=== PATIENT | male | born 1940 | race Caucasian/White ===

== ENCOUNTER 2017-05-25 18:04 | Inpatient (IN) | payer MEDICARE ==
--- NOTE | 2017-05-25 19:20 | EDM.PDOC ---
[id number] Complaint: VOMITING Time Seen by Provider: 05/25/17 19:05 Source of Information: Reports: Provider History Limitations: Reports: Other (Patient is noncommunicative, lives in assisted living) - History of Present Illness INITIAL COMMENTS - FREE TEXT/NARRATIVE: 77-year-old male has had vomiting for the past 2 days. No bowel movement for the past 2 days. He typically has a bowel movement every day. He is not complaining of pain, but tends not to complain when there are issues. No fevers or chills. No shortness of breath or cough. Onset: Gradual (Over the past 2 days) Severity: Moderate Associated Symptoms: Reports: Nausea/Vomiting, Other (This afternoon after vomiting his blood pressure did drop, it has normalized). Denies: Fever/Chills , Shortness of Breath - Related Data Allergies Allergy/AdvReac Type Severity Reaction Status Date / Time No Known Allergies Allergy Verified 05/25/17 19:36 Home Meds: Home Meds Calcium Carbonate/Vitamin D3 [Calcium 500 mg Chewable Tablet] 1 each PO BID 07/07 [History] Cetirizine [ZyrTEC] 10 mg PO DAILY 05/30/15 [History] Cholecalciferol (Vitamin D3) [Vitamin D] 1,000 unit PO DAILY 05/30/15 [History] Escitalopram [Lexapro] 20 mg PO DAILY 05/30/15 [History] LORazepam [Ativan] 1 mg PO BID 05/30/15 [History] busPIRone [Buspar] 5 mg PO BID 05/30/15 [History] Past Medical History Other Neuro History: Mental redardation - Past Surgical History Other Musculoskeletal Surgeries/Procedures:: hip repair Social & Family History - Tobacco Use Smoking Status *Q: Never Smoker - Recreational Drug Use Recreational Drug Use: No ED ROS GENERAL - Review of Systems Review Of Systems: Unable To Obtain (Brief review of systems is in history of present illness obtained from provider, unable to obtain from patient) ED EXAM, GI/ABD - Physical Exam Exam: See Below Exam Limited By: Language Barrier General Appearance: Alert, No Apparent Distress Eyes: Bilateral: EOMI (No jaundice) Respiratory/Chest: No Respiratory Distress, Lungs Clear Cardiovascular: Regular Rate, Rhythm GI/Abdominal: Normal Bowel Sounds, Soft, Other (Abdomen seems somewhat distended and he does react with tenderness to palpation but does not guard) Neurological: Alert Psychiatric: Flat Affect Skin Exam: Warm, Dry Course - Vital Signs Last Recorded V/S: Last Vital Signs Temp 99.0 F 05/25/17 23:36 Pulse 87 05/25/17 23:36 Resp 20 05/25/17 23:36 BP 120/65 05/25/17 23:36 Pulse Ox 94 L 05/25/17 23:36 - Orders/Labs/Meds Orders: Active Orders 24 hr Category Date Time Status Abdomen Pelvis wo Cont [CT] Stat Exams 05/25/17 20:11 Taken NG Tube Placement [CR] Stat Exams 05/25/17 21:06 Taken Dextrose 5%-Lactated Ringers 1,000 ml Med 05/25/17 21:15 Active IV ASDIRECTED Medication Orders Hydromorphone HCl (Dilaudid) 0.25 mg IV Q2H PRN PRN Reason: Pain Dextrose/Lactated Ringer's (Dextrose 5%-Lactated Ringers) 1,000 mls @ 150 mls/ hr IV ASDIRECTED JESSI Last Admin: 05/25/17 21:40 Dose: 150 mls/hr Dextrose/Lactated Ringer's (Dextrose 5%-Lactated Ringers) 1,000 mls @ 250 mls/ hr IV ASDIRECTED JESSI Lorazepam (Ativan) 0.5 mg IV Q2H PRN PRN Reason: Agitation Ondansetron HCl (Zofran) 4 mg IV Q6H PRN PRN Reason: Nausea/Vomiting Labs: Laboratory Tests 05/25/17 05/25/17 Range/Units 19:30 19:30 WBC 6.0 (4.5-11.0) K/uL RBC 4.75 (4.30-5.90) M/uL Hgb 14.0 (12.0-15.0) g/dL Hct 43.2 (40.0-54.0) % MCV 91 (80-98) fL MCH 30 (27-31) pg MCHC 32 (32-36) % Plt Count 350 (150-400) K/uL Neut % (Auto) 81 H (36-66) % Lymph % (Auto) 9 L (24-44) % [place] % (Auto) 10 H (2-6) % Eos % (Auto) 1 L (2-4) % Baso % (Auto) 0 (0-1) % Sodium 142 (140-148) mmol/L Potassium 4.0 (3.6-5.2) mmol/L Chloride 102 (100-108) mmol/L Carbon Dioxide 32 (21-32) mmol/L Anion Gap 7.7 (5.0-14.0) mmol/L BUN 32 H (7-18) mg/dL Creatinine 1.6 H (0.8-1.3) mg/dL Est Cr Clr Drug Dosing 33.10 mL/min Estimated GFR (MDRD) 42 L (>60) Glucose 154 H (74-106) mg/dL Calcium 9.5 (8.5-10.1) mg/dL Total Bilirubin 0.9 (0.2-1.0) mg/dL AST 26 (15-37) U/L ALT 30 (12-78) U/L Alkaline Phosphatase 81 (46-116) U/L Total Protein 8.5 H (6.4-8.2) g/dL Albumin 3.4 (3.4-5.0) g/dL Globulin 5.1 H (2.3-3.5) g/dL Albumin/Globulin Ratio 0.7 L (1.2-2.2) Amylase 47 (25-115) U/L Lipase 95 (73-393) U/L Meds: Medications Generic Name Dose Route Start Last Admin Trade Name Freq PRN Reason Stop Dose Admin Hydromorphone HCl 0.25 mg 05/26/17 01:19 Dilaudid IV Q2H PRN Pain Dextrose/Lactated Ringer's 1,000 mls @ 150 mls/hr 05/25/17 21:15 05/25/17 21: 40 Dextrose 5%-Lactated Ringers IV 150 mls/hr ASDIRECTED JESSI Administration Dextrose/Lactated Ringer's 1,000 mls @ 250 mls/hr 05/26/17 01:15 Dextrose 5%-Lactated Ringers IV ASDIRECTED JESSI Lorazepam 0.5 mg 05/26/17 01:18 Ativan IV Q2H PRN Agitation Ondansetron HCl 4 mg 05/26/17 01:19 Zofran IV Q6H PRN Nausea/Vomiting Discontinued Medications Generic Name Dose Route Start Last Admin Trade Name Freq PRN Reason Stop Dose Admin Midazolam HCl 2 mg 05/25/17 21:28 05/25/17 21:41 Versed 1 Mg/Ml IVPUSH 05/25/17 21:29 2 mg ONETIME ONE Administration Pantoprazole Sodium 40 mg 05/26/17 01:30 05/26/17 01:33 Protonix Iv IV 05/26/17 01:31 40 mg NOW ONE Administration - Re-Assessments/Exams Free Text/Narrative Re-Assessment/Exam: 05/25/17 19:20 CBC, CMP, amylase and lipase were obtained with the intent of likely following with a CT scan of the abdomen to assess for bowel obstruction. 05/25/17 21:21 White count was normal but the CT confirmed a small bowel obstruction with a midpoint transition of unknown etiology. His case was discussed with Dr. Samaniego, an NG was placed and he will be admitted for expectant laparoscopy tomorrow morning. Departure - Departure Time of Disposition: 23:17 Disposition: Admitted As Inpatient 65 Condition: Fair Clinical Impression: Small bowel obstruction - Discharge Information - My Orders Last 24 Hours: My Active Orders 05/25/17 20:11 Abdomen Pelvis wo Cont [CT] Stat 05/25/17 21:06 NG Tube Placement [CR] Stat 05/25/17 21:15 Dextrose 5%-Lactated Ringers 1,000 ml IV ASDIRECTED - Assessment/Plan Last 24 Hours: My Active Orders 05/25/17 20:11 Abdomen Pelvis wo Cont [CT] Stat 05/25/17 21:06 NG Tube Placement [CR] Stat 05/25/17 21:15 Dextrose 5%-Lactated Ringers 1,000 ml IV ASDIRECTED
[2017-05-25] MEDS ORDERED: Dextrose 5%-Lactated Ringers 1,000 ML IV SCH (21:15)
[2017-05-25] MEDS ORDERED: Midazolam 1 MG/ML 2 ML SDV IVPUSH ONE (21:28)
[2017-05-26] MEDS ORDERED: Dextrose 5%-Lactated Ringers 1,000 ML IV SCH (01:15)
[2017-05-26] MEDS ORDERED: LORazepam 2 MG/ML MDV IV PRN (01:18)
[2017-05-26] MEDS ORDERED: Ondansetron 4 MG/2 ML SDV IV PRN (01:19)
[2017-05-26] MEDS ORDERED: HYDROmorphone 1 MG/ML Syringe IV PRN (01:19)
[2017-05-26] MEDS ORDERED: Pantoprazole 40 MG Vial IV ONE (01:30)
[2017-05-26] MEDS ORDERED: Piperacillin/Tazobactam 3.375 GM in Sodium Chloride 0.9% 50 ML IV SCH (05:45)
[2017-05-26] MEDS ORDERED: Naloxone 0.4 MG/ML SDV IV PRN (08:04)
[2017-05-26] MEDS: fentaNYL 25 MCG/HR Transdermal Patch TRDERM SCH (09:08)
[2017-05-26] MEDS ORDERED: Propofol 200 MG/20 ML SDV ONE (09:09)
[2017-05-26] MEDS ORDERED: fentaNYL 250 MCG/5 ML SDV ONE (09:09)
[2017-05-26] MEDS ORDERED: Neostigmine Methylsulfate 1 MG/ML 5 ML Syringe ONE (09:09)
[2017-05-26] MEDS ORDERED: Dexamethasone 4 MG/ML SDV ONE (09:09)
[2017-05-26] MEDS ORDERED: Ondansetron 4 MG/2 ML SDV ONE (09:09)
[2017-05-26] MEDS ORDERED: Rocuronium 50 MG/5 ML Vial ONE (09:09)
[2017-05-26] MEDS: VERIFY FENT PATCH TOP SCH ×2 (09:09→20:48)
[2017-05-26] MEDS ORDERED: Lactated Ringers 1,000 ML ONE (09:39)
[2017-05-26] MEDS ORDERED: Meropenem 500 MG SDV ONE (10:12)
[2017-05-26] MEDS ORDERED: Piperacillin/Tazobactam/Dext 3.375 GM in Premix Bag 1 BAG IV ONE (10:30)
[2017-05-26] MEDS: Pantoprazole 40 MG Vial IV SCH (14:40)
[2017-05-26] MEDS: HYDROmorphone/Normal Saline 15 MG/30 ML PCA IV PRN (17:16)
[2017-05-26] MEDS: Piperacillin/Tazobactam 3.375 GM in Sodium Chloride 0.9% 50 ML IV SCH (17:36)
[2017-05-26] MEDS: Dextrose 5%-Lactated Ringers 1,000 ML IV SCH (17:43)
[2017-05-26] MEDS ORDERED: Piperacillin/Tazobactam/Dext 3.375 GM in Premix Bag 1 BAG IV SCH (18:00)
[2017-05-27] MEDS: Piperacillin/Tazobactam 3.375 GM in Sodium Chloride 0.9% 50 ML IV SCH ×2 (00:02→05:09)
[2017-05-27] MEDS: Dextrose 5%-Lactated Ringers 1,000 ML IV SCH ×3 (01:26→21:31)
[2017-05-27] MEDS: Pantoprazole 40 MG Vial IV SCH ×2 (01:30→14:30)
[2017-05-27] MEDS: Tamsulosin 0.4 MG Cap.ER PO SCH ×2 (08:29→18:13)
--- NOTE | 2017-05-27 08:37 | PN ---
DATE OF SERVICE: 05/27/2017 SUBJECTIVE: Jewels had a diagnostic laparotomy for small bowel obstruction on 05/26/2017. His incision is open, and he will be having delayed primary closure in the morning. He did have an episode of aspiration, unknown time. Temp max 99. He is currently on Zosyn for antibiotics. REVIEW OF SYSTEMS: Remainder of review of systems per nursing report and negative. OBJECTIVE: GENERAL: Jewels is a 77-year-old male. Nonverbal. VITAL SIGNS: TPR 97.6, 70, 20, and blood pressure 111/74. HEENT: Negative. NECK: Supple. HEART: Regular rate and rhythm. LUNGS: Decreased breath sounds bilaterally, but he is unable to take a deep breath or understand to take a deep breath. ABDOMEN: Dressings dry and intact. Abdominal binder is on. EXTREMITIES: Without peripheral edema and SCDs are on. ASSESSMENT: Exploratory laparotomy with small bowel resection x2, enterotomy for tube decompression of small bowel, and repair of umbilical hernia for adhesion and small bowel obstruction, questionable congenital adhesion with marked dilatation of the small bowel proximal to the point of obstruction and umbilical hernia. Date of surgery was 05/26/2017. PLAN: 1. Delayed primary closure. Consent to be signed and is to be scheduled for , 05/28/2017. IV sedation. Kiet Samaniego MD. N.p.o. after midnight. 2. Leave Munoz catheter in for accurate intake and output. 3. Flomax 0.4 mg p.o. b.i.d. today, then starting tomorrow Flomax 0.4 mg at bedtime p.o. 4. He is to have sips of water and ice chips. 5. Decrease IV to 100 mL per hour. 6. Restart Lexapro 20 mg p.o. daily, Lorazepam 1 mg p.o. b.i.d., and BuSpar 5 mg p.o. b.i.d., and Zyrtec 10 mg p.o. daily; when it is confirmed by Pharmacy. 7. Good pulmonary toilet encouraged. 8. We will evaluate p.r.n. or in a.m. Geno Gutierrez PA-C /[id number]
--- NOTE | 2017-05-27 08:38 | CR ---
NG tube with distal tip in the proximal stomach. Side-port at GE junction. Would advance by 2-3 cm. Infiltrate within the right lung base with atelectasis or infiltrate left lung base.
--- NOTE | 2017-05-27 08:39 | CR ---
Moderate cardiomegaly. Small right effusion with atelectasis or infiltrate in the left lung base. Re moval of NG tube. Hazy infiltrate right lung base.
--- NOTE | 2017-05-27 08:50 | CR ---
NG tube with distal tip in the upper stomach. Side-port at GE junction. Would advance by a few centi meters.
[2017-05-27] MEDS: VERIFY FENT PATCH TOP SCH ×2 (08:56→21:54)
[2017-05-27] MEDS: Piperacillin/Tazobactam/Dext 3.375 GM in Premix Bag 1 BAG IV SCH ×3 (11:12→22:00)
[2017-05-27] MEDS ORDERED: Lactated Ringers 500 ML IV ONE (14:30)
[2017-05-27] MEDS ORDERED: Citalopram 20 MG Tab PO SCH (16:00)
[2017-05-27] MEDS: Cetirizine 10 MG Tab PO SCH (17:40)
[2017-05-27] MEDS: Escitalopram 20 MG Tab PO SCH (17:40)
[2017-05-27] MEDS: LORazepam 2 MG/ML MDV IVPUSH PRN (19:53)
[2017-05-27] MEDS: busPIRone 5 MG Tab PO SCH (21:53)
[2017-05-27] MEDS: LORazepam 1 MG Tab PO SCH (21:53)
[2017-05-27] MEDS ORDERED: Lactated Ringers 500 ML IV SCH (22:30)
[2017-05-28] MEDS: Piperacillin/Tazobactam/Dext 3.375 GM in Premix Bag 1 BAG IV SCH ×4 (05:16→23:13)
[2017-05-28] MEDS ORDERED: Lactated Ringers 500 ML IV ONE ×2 (05:30→11:30)
[2017-05-28] MEDS ORDERED: Lidocaine 1% 50 ML MDV ONE (06:37)
[2017-05-28] MEDS ORDERED: Bupivacaine 0.5%/EPINEPHrine 1:200,000 50 ML MDV ONE (06:37)
[2017-05-28] MEDS ORDERED: Meropenem 500 MG SDV ONE (06:37)
[2017-05-28] MEDS ORDERED: Propofol 200 MG/20 ML SDV ONE ×2 (06:59→08:02)
[2017-05-28] MEDS ORDERED: Lactated Ringers 1,000 ML ONE (07:48)
--- NOTE | 2017-05-28 09:10 | PN ---
DATE OF SERVICE: 05/28/2017 SUBJECTIVE: Jewels is a 77-year-old male. He is n.p.o. for delayed primary closure today. His pain has been controlled. He has had 3 boluses of lactated Ringer's 500 mL each for decreased urine output. REVIEW OF SYSTEMS: Remainder of review of systems negative for any pertinent positives and negatives. OBJECTIVE: GENERAL: Jewels Carty is a 77-year-old male. VITAL SIGNS: TPR 98.7, 83, 16, and blood pressure 101/70. HEENT: Negative. NECK: Supple. HEART: Regular rate and rhythm. LUNGS: Clear. ABDOMEN: Dressing dry and intact. Abdominal binder is on. Munoz catheter in place and draining clear bao urine. Total urine output was 1870. EXTREMITIES: Without peripheral edema. SCDs are on. ASSESSMENT: Exploratory laparotomy and small bowel resection x2, enterotomy for tube decompression of small bowel, and repair of umbilical hernia for adhesions and small bowel obstruction, questionable congenital adhesions with marked dilatation of the small bowel proximal to the point of obstruction, and umbilical hernia. Date of surgery, 05/26/2017. PLAN: 1. Orders to be written after delayed primary closure. 2. Check chest x-ray, PA and lateral, in a.m., 05/29/2017 at 0400 hours. Geno Gutierrez PA-C /[id number]
[2017-05-28] MEDS: VERIFY FENT PATCH TOP SCH ×2 (09:26→20:52)
[2017-05-28] MEDS: busPIRone 5 MG Tab PO SCH ×2 (09:39→20:51)
[2017-05-28] MEDS: Cetirizine 10 MG Tab PO SCH (09:39)
[2017-05-28] MEDS: LORazepam 1 MG Tab PO SCH ×2 (09:39→21:07)
[2017-05-28] MEDS: Escitalopram 20 MG Tab PO SCH (09:39)
[2017-05-28] MEDS: Dextrose 5%-Lactated Ringers 1,000 ML IV SCH ×2 (11:38→23:12)
--- NOTE | 2017-05-28 11:46 | OR ---
DATE OF PROCEDURE: 05/25/2017 PREOPERATIVE DIAGNOSIS: Small bowel obstruction. POSTOPERATIVE DIAGNOSES: 1. Small bowel obstruction, apparently associated with congenital adhesions. 2. Marked distention of proximal small bowel. 3. Incarcerated umbilical hernia. OPERATIVE PROCEDURE: Exploratory laparotomy with: 1. a. Small bowel resection (14621). b. Enterotomy for decompression of small bowel (10094). c. Repair of incarcerated umbilical hernia (13384). ANESTHESIA: General. INDICATIONS FOR PROCEDURE: This is a 77-year-old male with severe mental retardation, presenting with a picture of a small-bowel obstruction. He has not had any previous intraabdominal surgeries, and given this, he is felt to be high risk for problems such as malignancy, as there was no obvious reason for having any postoperative adhesions. The plan is to proceed with an exploratory laparotomy, release of the obstruction, and possible bowel resection, and other procedures as indicated. Potential risks of the procedure were reviewed with the patient's niece who is his guardian and she wishes to proceed. DETAILS OF PROCEDURE: The patient was taken to the operating room and placed in a supine position. After general endotracheal anesthesia was induced, a Munoz catheter was inserted and the abdomen was prepped and draped. A nasogastric tube was already in place. A midline incision which extended from the umbilicus roughly 1-1/2 handsbreadth superiorly was made and carried down through the full-thickness abdominal wall. Upon entering the peritoneal cavity, the patient was noted to have a markedly distended proximal small bowel. This was traced down to the area of small bowel that was involved in some dense adhesions with the bowel, more or less in a 'W' shape. With the adhesions in that area and beyond that point, there was a marked decrease in the caliber of the small bowel, i.e. that was clearly the point of obstruction. There was no obvious mass in that area, but it was felt to be best resected. The area proximal and distal to that area of small bowel entanglement was then divided with LALA edwards loads and the wedge of mesentery was then removed as well with combination of vascular mesenteric sonya so as to provide a lymph node resection should a malignancy subsequently be identified. The proximal small bowel was then inspected. This was diffusely quite distended, and given this, a small enterotomy was made in the proximal staple line, and the [place] sump tube was placed and a large amount of air and small bowel contents were then evacuated such that the proximal end of the divided small bowel was quite well decompressed. The distal small bowel was then inspected down to the area of the ileocecal valve and no additional pathology was seen. At this point, the [id number] enteroenterostomy was accomplished with internal firing of the Endo-LALA 60-mm stapler x2, common opening was then closed transversely with the same stapler. Of note, one additional small bowel segment was resected on the distal side of the original resection with intermittent edwards load prior to the anastomosis as they appeared to be somewhat ischemic. Once the anastomosis was completed, it was reinforced with some 3-0 Vicryl seromuscular stitch and mesenteric defect was likewise closed with 3-0 Vicryl stitch and the abdomen was then irrigated with antibiotic saline solution. was then pulled down underneath the incision and the fascia was closed with #2 Vicryl stitch. During the course of the fascial dissection, the patient was noted to have an incarcerated umbilical hernia containing some preperitoneal fat within it. This was incised and the contents removed and the hernia then repaired along with closure of the midline fascia. The skin and subcutaneous tissue were felt to be high risk should a primary closure be undertaken. Given this, the incision was packed open for a planned delayed primary closure in 48 hours and no evident complications. The patient was taken to the recovery room in satisfactory condition. Kiet Samaniego MD /[id number]
[2017-05-28] MEDS ORDERED: Furosemide 20 MG/2 ML VIAL IVPUSH ONE (13:00)
[2017-05-28] MEDS: Pantoprazole 40 MG Vial IV SCH (13:17)
[2017-05-28] MEDS: Potassium Chloride 20 MEQ, Lidocaine 1% 2 ML in Sodium Chloride 0.9% 100 ML IV SCH ×2 (14:03→17:19)
[2017-05-28] MEDS: HYDROmorphone/Normal Saline 15 MG/30 ML PCA IV PRN (16:23)
[2017-05-28] MEDS: Albuterol/Ipratropium 3.0-0.5 MG/3 ML Neb Soln NEB PRN (18:55)
[2017-05-28] MEDS: LORazepam 2 MG/ML MDV IVPUSH PRN ×2 (20:49→23:00)
[2017-05-28] MEDS: Tamsulosin 0.4 MG Cap.ER PO SCH (20:51)
[2017-05-29] MEDS: Albuterol/Ipratropium 3.0-0.5 MG/3 ML Neb Soln NEB PRN (04:46)
[2017-05-29] MEDS: Piperacillin/Tazobactam/Dext 3.375 GM in Premix Bag 1 BAG IV SCH ×4 (05:40→22:50)
--- NOTE | 2017-05-29 08:33 | PN ---
DATE OF SERVICE: 05/29/2017 SUBJECTIVE: Jewels is a 77-year-old male who had delayed primary closure yesterday. He did receive Lasix 10 mg yesterday and 500 mL of lactated Ringer bolus. He also started DuoNebs and was having a difficult time, coughing up extra phlegm. There is some unknown time of aspiration pneumonia. REVIEW OF SYSTEMS: Remainder of review of systems negative for any pertinent positives and negatives. OBJECTIVE: GENERAL: Jewels Carty is a 77-year-old male. He is sleeping quite soundly. VITAL SIGNS: TPR is 99.5, 90, 22, and blood pressure 106/74. O2 sats by pulse oximetry is 91% on 5 L of O2. HEENT: Negative. Mouth is dry because he is mouth-breathing. HEART: Regular rate and rhythm. LUNGS: Clear. ABDOMEN: Dressings dry and intact. Abdominal binder is on. EXTREMITIES: Without peripheral edema. ASSESSMENT: 1. Exploratory laparotomy and small bowel resection x2, enterotomy for decompression of small bowel, and repair of incarcerated umbilical hernia, on 05/25/2017. 2. Aspiration pneumonia. 3. 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 PLAN: 1. Full liquid diet. 2. Dulcolax tabs 2 b.i.d. p.o. until bowel movement. 3. Leave Munoz catheter in for accurate intake and output. 4. Lasix 20 mg IV b.i.d. today only. 5. Check CBC, CMP, mag, phos, and BNP in a.m. 6. KCl 60 mEq IV with lidocaine in 3 divided doses. 7. Decrease IV to 60 mL/hour. 8. To be up in the chair as much as possible. 9. Physical Therapy to evaluate and treat. 10.Good pulmonary toilet encouraged. 11.We will evaluate p.r.n. or in a.m. Geno Gutierrez PA-C /[id number]
--- NOTE | 2017-05-29 09:47 | CR ---
Cardiomegaly redemonstrated. Opacification with the left lung base may indicate infiltrate including aspiration with small pleural effusion. Airspace disease left midlung zone has increased. Perihilar fullness as well. This could be due to CHF or infection.
[2017-05-29] MEDS: Bisacodyl 5 MG Tab PO SCH ×2 (09:54→20:39)
[2017-05-29] MEDS: busPIRone 5 MG Tab PO SCH ×2 (09:56→20:40)
[2017-05-29] MEDS: Furosemide 20 MG/2 ML VIAL IVPUSH SCH ×2 (09:56→20:39)
[2017-05-29] MEDS: Cetirizine 10 MG Tab PO SCH (09:56)
[2017-05-29] MEDS: VERIFY FENT PATCH TOP SCH (09:57)
[2017-05-29] MEDS: fentaNYL 25 MCG/HR Transdermal Patch TRDERM SCH (09:57)
[2017-05-29] MEDS: Escitalopram 20 MG Tab PO SCH (10:01)
[2017-05-29] MEDS: LORazepam 1 MG Tab PO SCH ×2 (10:07→20:40)
[2017-05-29] MEDS: Potassium Chloride 20 MEQ, Lidocaine 1% 2 ML in Sodium Chloride 0.9% 100 ML IV SCH ×3 (10:24→14:53)
[2017-05-29] MEDS: Pantoprazole 40 MG Vial IV SCH (14:07)
[2017-05-29] MEDS: Dextrose 5%-Lactated Ringers 1,000 ML IV SCH (17:01)
[2017-05-29] MEDS: Tamsulosin 0.4 MG Cap.ER PO SCH (20:41)
[2017-05-30] MEDS: Piperacillin/Tazobactam/Dext 3.375 GM in Premix Bag 1 BAG IV SCH ×4 (04:23→22:13)
[2017-05-30] MEDS ORDERED: Magnesium Citrate Solution 296 ML Bottle PO ONE (10:00)
[2017-05-30] MEDS: Cetirizine 10 MG Tab PO SCH (10:30)
[2017-05-30] MEDS: Bisacodyl 5 MG Tab PO SCH ×2 (10:30→20:07)
[2017-05-30] MEDS: Escitalopram 20 MG Tab PO SCH (10:30)
[2017-05-30] MEDS: Furosemide 20 MG/2 ML VIAL IVPUSH SCH ×2 (10:31→17:21)
[2017-05-30] MEDS: busPIRone 5 MG Tab PO SCH ×2 (10:31→20:06)
[2017-05-30] MEDS: LORazepam 1 MG Tab PO SCH ×2 (10:34→20:06)
[2017-05-30] MEDS: Potassium Chloride 20 MEQ, Lidocaine 1% 2 ML in Sodium Chloride 0.9% 100 ML IV SCH ×3 (11:32→16:36)
[2017-05-30] MEDS: Pantoprazole 40 MG Vial IV SCH (14:38)
[2017-05-30] MEDS ORDERED: Acetaminophen 325 MG Tab PO PRN (17:35)
[2017-05-30] MEDS: Tamsulosin 0.4 MG Cap.ER PO SCH (20:06)
[2017-05-30] MEDS: Dextrose 5%-Lactated Ringers 1,000 ML IV SCH (20:18)
[2017-05-31] MEDS: Piperacillin/Tazobactam/Dext 3.375 GM in Premix Bag 1 BAG IV SCH ×4 (04:28→23:14)
[2017-05-31] MEDS: LORazepam 1 MG Tab PO SCH ×2 (09:49→21:23)
[2017-05-31] MEDS: Bisacodyl 5 MG Tab PO SCH ×2 (09:49→21:23)
[2017-05-31] MEDS: busPIRone 5 MG Tab PO SCH ×2 (09:52→21:15)
[2017-05-31] MEDS: Escitalopram 20 MG Tab PO SCH (09:52)
[2017-05-31] MEDS: Cetirizine 10 MG Tab PO SCH (09:53)
[2017-05-31] MEDS ORDERED: Sodium Chloride 0.9% 10 ML Syringe IV PRN (10:34)
[2017-05-31] MEDS: Potassium Phosphates 20 MMOLE in Sodium Chloride 0.9% 150 ML IV SCH ×3 (11:04→17:12)
[2017-05-31] MEDS ORDERED: Furosemide 20 MG/2 ML VIAL IVPUSH ONE (12:00)
[2017-05-31] MEDS: Magnesium Sulfate/Water 2 GM in Premix Bag 1 BAG IV SCH ×2 (12:04→18:18)
[2017-05-31] MEDS: Pantoprazole 40 MG Vial IV SCH (13:22)
[2017-05-31] MEDS: Tamsulosin 0.4 MG Cap.ER PO SCH (21:15)
[2017-05-31] MEDS ORDERED: Lidocaine 2% Jelly 10 ML Urojet MUCMEM ONE (21:47)
[2017-06-01] MEDS: Magnesium Sulfate/Water 2 GM in Premix Bag 1 BAG IV SCH ×4 (00:16→17:14)
[2017-06-01] MEDS: Piperacillin/Tazobactam/Dext 3.375 GM in Premix Bag 1 BAG IV SCH ×4 (05:05→22:16)
--- NOTE | 2017-06-01 08:06 | PN ---
DATE OF SERVICE: 06/01/2017 SUBJECTIVE: Jewels did have to have his Munoz catheter replaced. He had residual 480 mL of urine. Oral intake was poor. Last bowel movement 05/31/2017. He is very sleepy this morning, unable to arouse. OBJECTIVE: GENERAL: Jewels Carty is a 77-year-old male, sleeping soundly. VITAL SIGNS: TPR 98.7, 72, 18. Blood pressure 103/52. HEENT: Negative. NECK: Supple. HEART: Regular rate and rhythm. LUNGS: Clear. ABDOMEN: Dressings dry and intact. EXTREMITIES: Without peripheral edema. Assessments were done while he was sleeping. ASSESSMENT: 1. An exploratory laparotomy and small bowel resection x2, enterotomy for decompression of small bowel, and repair of incarcerated umbilical hernia on 05/25/2017. 2. Aspiration pneumonia. 3. Delayed primary closures, 05/28/2017. 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 4. Urinary retention requiring Munoz catheter. PLAN: 1. Increase oral intake. 2. Order written to discharge planning to check if he can have his Munoz catheter when he is discharged to home. Geno Gutierrez PA-C /[id number]
[2017-06-01] MEDS: LORazepam 1 MG Tab PO SCH ×2 (08:20→22:07)
[2017-06-01] MEDS: Cetirizine 10 MG Tab PO SCH (08:20)
[2017-06-01] MEDS: Bisacodyl 5 MG Tab PO SCH ×2 (08:20→20:23)
[2017-06-01] MEDS: Escitalopram 20 MG Tab PO SCH (08:20)
[2017-06-01] MEDS: busPIRone 5 MG Tab PO SCH ×2 (08:21→22:07)
--- NOTE | 2017-06-01 08:33 | PN ---
DATE OF SERVICE: 05/30/2017 The patient has been afebrile with stable vital signs. Blood pressure is a little bit higher. He still has a fair bit of congestion with fairly poor cough effort. We will need to keep him up in a chair as much as possible. Today, oral intake has also been poor. We will need to push that and we will give him some IV Lasix once again today as his BNP is somewhat higher. Potassium is marginally low, so we will supplement with some IV potassium as well and otherwise maximize the amount of activity he is having in order to help maintain lung status. Kiet Samaniego MD /[id number]
[2017-06-01] MEDS: Pantoprazole 40 MG Vial IV SCH (13:50)
--- NOTE | 2017-06-01 16:24 | PN ---
DATE OF SERVICE: 05/31/2017 The patient has been afebrile with stable vital signs. Oral intake was quite a bit better yesterday, lungs were also improving. We will work on weaning down the oxygen today. We are giving him some additional IV Lasix. His potassium and phosphate are marginally low, and we will replace those as is the magnesium which will also be replaced. We will go up to a regular diet. We will need to have fairly soft food as he does not teeth. He may be ready for discharge home tomorrow. His BNP has come down to 4773 yesterday indicating adequate diuresis is ongoing. Kiet Samaniego MD /[id number]
[2017-06-01] MEDS: Tamsulosin 0.4 MG Cap.ER PO SCH (22:07)
[2017-06-02] MEDS: Magnesium Sulfate/Water 2 GM in Premix Bag 1 BAG IV SCH ×2 (00:16→05:02)
[2017-06-02] MEDS: D5 1/2 NS w/ 20 mEq/L KCl 1,000 ML IV SCH ×2 (02:40→15:56)
[2017-06-02] MEDS: Piperacillin/Tazobactam/Dext 3.375 GM in Premix Bag 1 BAG IV SCH ×4 (04:28→22:04)
[2017-06-02] MEDS: Escitalopram 20 MG Tab PO SCH (09:16)
[2017-06-02] MEDS: Cetirizine 10 MG Tab PO SCH (09:16)
[2017-06-02] MEDS: busPIRone 5 MG Tab PO SCH ×2 (09:17→20:21)
[2017-06-02] MEDS: LORazepam 1 MG Tab PO SCH ×2 (09:21→20:21)
[2017-06-02] MEDS: Bisacodyl 5 MG Tab PO SCH (09:22)
[2017-06-02] MEDS: Pantoprazole 40 MG Tab.CR PO SCH (12:11)
[2017-06-02] MEDS: Tamsulosin 0.4 MG Cap.ER PO SCH (20:21)
[2017-06-03] MEDS: Piperacillin/Tazobactam/Dext 3.375 GM in Premix Bag 1 BAG IV SCH ×2 (05:06→11:44)
[2017-06-03] MEDS: D5 1/2 NS w/ 20 mEq/L KCl 1,000 ML IV SCH (05:08)
[2017-06-03 07:58] VITALS: BP 111/54
[2017-06-03] MEDS: Pantoprazole 40 MG Tab.CR PO SCH (08:11)
[2017-06-03] MEDS: Escitalopram 20 MG Tab PO SCH (08:11)
[2017-06-03] MEDS: busPIRone 5 MG Tab PO SCH (08:11)
[2017-06-03] MEDS: LORazepam 1 MG Tab PO SCH (08:11)
[2017-06-03] MEDS: Cetirizine 10 MG Tab PO SCH (08:11)
--- NOTE | 2017-06-03 14:02 | DISCH ---
ADMISSION DIAGNOSES: Small bowel obstruction, noncommunicative, lives in halfway, learning disability. 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 Delayed primary closure of open wound on 05/28/2017. HISTORY: Jewels is a 77-year-old male with severe mental retardation, presenting with a picture of small bowel obstruction. After preoperative evaluation and discussion of possible risks and possible complications, that were reviewed with the patient's niece who is the guardian, wished to proceed with surgical procedure. HOSPITAL COURSE: Jewels had his surgery on 05/25/2017 with a delayed primary closure on 05/28/2017. He had no operative complications. He did have some difficulty with urinary retention. He will be discharged with a Munoz catheter and has a followup appointment in June. Vital signs did remain stable throughout his hospitalization. He had an increase in somnolence, which did improve. 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 OBJECTIVE: GENERAL: Carloz David is a 77-year-old male. VITAL SIGNS: Height is 5 feet 6 inches. Weight is 136 pounds. TPR is 98.2, 66, 20, and blood pressure is 111/54. His oral intake on the day prior to discharge was 630 mL. Urine output was 1250. His last bowel movement was 06/01/2017. HEENT: Negative. NECK: Supple. HEART: Regular rate and rhythm. LUNGS: Clear. ABDOMEN: Incision looks good. Steri-Strips are on. Abdominal binder is on. EXTREMITIES: Without peripheral edema. DISPOSITION: Discharged to his halfway. CONDITION: Stable. FOLLOWUP APPOINTMENT: With Kiet Samaniego MD, on 06/10/2017 at 8:15 a.m. He is to resume all of his routine medications. DIET: Usual diet as tolerated. Drink 8 to 10 glasses of water a day. ACTIVITY: No lifting greater than 10 pounds for 6 weeks. Walk 6 times daily short distances. May shower. Keep operative site clean and dry. Wear abdominal binder for 2 weeks and then as tolerated. Use incentive spirometer 10 times every hour while awake for 2 weeks. If [place] has not started eating, to notify Kiet Samaniego MD, or Dylan Gutierrez PA-C, call [phone]. Munoz catheter to remain in until appointment with urologist. DISCHARGE MEDICATIONS: He is to resume his home medication; calcium 500 mg chewable 1 twice daily, Zyrtec 10 mg oral daily, vitamin D3 1000 international units daily, Lexapro 20 mg oral daily, Ativan 1 mg oral twice daily, and BuSpar 5 mg oral twice daily.
--- NOTE | 2017-06-03 19:02 | PN ---
DATE OF SERVICE: 06/02/2017 The patient has been afebrile with stable vital signs. Oral intake remains poor. I was talking to the people from his snf and it sounds like someone needs to more or less feed him and I believe we will have the nursing try doing today. Otherwise, his urine output was fairly low as he has not had much oral intake and the patient had an 80 mL an hour IV rate today. We will recheck some labs tomorrow and as mentioned above, encourage increasing his oral intake by actively feeding him. Kiet Samaniego MD /[id number]
--- NOTE | 2017-06-04 15:47 | OR ---
DATE OF PROCEDURE: 05/28/2017 PREOPERATIVE DIAGNOSIS: Open abdominal incision. POSTOPERATIVE DIAGNOSIS: Open abdominal incision. PROCEDURE PERFORMED: Delayed primary closure of open abdominal incision. ANESTHESIA: IV sedation plus local. BAKERY CHEF: MONSE Martinez student. INDICATION FOR PROCEDURE: A 77-year-old status post an open laparotomy where the small bowel was resected. The skin and subcutaneous tissue were felt to be high risk for a wound infection should they be closed. Given this, the skin and subcutaneous tissue were packed open for a planned delayed primary closure at this time. Potential risks of the procedure including bleeding and infection were reviewed with the patient's niece and guardian, and she wishes to proceed. DESCRIPTION OF PROCEDURE: The patient was taken to the operating room and placed in a supine position. After IV sedation was administered, the operative dressing was taken down. The wound inspected and found to be clean. The incision was then prepped and draped, anesthetized with 1% lidocaine mixed with Marcaine, and irrigated with antibiotic saline solution. The subcutaneous tissue was then closed with 2 layers of 3-0 and 4-0 Vicryl stitch and then the skin with sonya. Dressing was then applied along the long midline incision. The patient was taken to the recovery room in satisfactory condition. Kiet Samaniego MD /[id number]
== END 2017-06-03 13:27 | DRG 344 ==
LOC: JP.ED 18:04 → JP.2SS 21:15 → JP.MS 05-26 18:21
PROVIDERS: ADMIT Surgery; ATTEND Surgery
PROC: 0DB80ZX Excision of Small Intestine, Open Approach, Diagnostic (ICD-10-PCS; principal; 2017-05-26)
PROC: 0WQF0ZZ Repair Abdominal Wall, Open Approach (ICD-10-PCS; principal; 2017-05-26)
PROC: 0D980ZX Drainage of Small Intestine, Open Approach, Diagnostic (ICD-10-PCS; principal; 2017-05-26)
PROC: 0WQF0ZZ Repair Abdominal Wall, Open Approach (ICD-10-PCS; 2017-05-28)
DX: K56.5 Intestinal adhesions [bands] with obstruction (postinfection) (principal); J69.0 Pneumonitis due to inhalation of food and vomit; K42.0 Umbilical hernia with obstruction, without gangrene; R11.10 Vomiting, unspecified; F72 Severe intellectual disabilities; K63.89 Other specified diseases of intestine; R33.9 Retention of urine, unspecified; K00.0 Anodontia; Z48.1 Encounter for planned postprocedural wound closure
CPT/HCPCS: 36415; 43752; 43753; 71010; 71010-26; 74176; 80048; 80053; 82150; 83690; 83735; 83880; 84100; 85025; 85027; 87040; 88302; 88307; 94762; 96374; 97110-GP; 97161-GP; 97530-GP; 99284; 99285-25; A9270-GY; C9113; J1100; J1170; J1940; J2060; J2185; J2250; J2405; J2543; J2704; J3010; J3475; J3480; J3490; J7030; J7040; J7042; J7050; J7120; J7620